=== PATIENT | female | born 1985 | race Caucasian/White ===

== ENCOUNTER 2021-08-18 10:56 | Outpatient (CLI) | payer BC | END 2021-08-18 10:57 | disposition home or self-care (01) | LOC: BICRAD 10:56 | PROVIDERS: ATTEND Nurse Practitioner Family | DX: M79.672 Pain in left foot (principal) ==

== ENCOUNTER 2021-09-09 12:01 | Outpatient (CLI) | payer OTHER | END 2021-09-09 12:02 | disposition home or self-care (01) | LOC: DTY/OP 12:01 | PROVIDERS: ATTEND Nurse Practitioner Family | DX: Z68.36 Body mass index [BMI] 36.0-36.9, adult (principal) | CPT/HCPCS: 97802 ==

== ENCOUNTER 2022-01-12 12:04 | Outpatient (CLI) | payer OTHER | END 2022-01-12 12:05 | disposition home or self-care (01) | LOC: DTY/OP 12:04 | PROVIDERS: ATTEND Nurse Practitioner Family | DX: Z68.36 Body mass index [BMI] 36.0-36.9, adult (principal) | CPT/HCPCS: 97803 ==

== ENCOUNTER 2022-04-20 14:08 | Outpatient (CLI) | payer OTHER | END 2022-04-20 14:09 | disposition home or self-care (01) | LOC: DTY/OP 14:08 | PROVIDERS: ATTEND Nurse Practitioner Family | DX: Z68.36 Body mass index [BMI] 36.0-36.9, adult (principal) | CPT/HCPCS: 97803 ==